=== PATIENT | male | born 1990 | race Caucasian/White ===

== ENCOUNTER 2023-11-10 05:31 | Emergency (ER) | payer OTHER, SELFPAY ==
[2023-11-10] VITALS (27 sets, daily range): BP systolic 140–224; BP diastolic 84–140; PULSE 70–117; TEMP 36.8; O2SAT 84–98; BMI 50.2
--- NOTE | 2023-11-10 06:15 | ED.PSYCH1 ---
HPI - Psych General Chief Complaint: Psychiatric Symptoms Stated Complaint: SUICIDAL Time Seen by Provider: 11/10/23 05:59 Source: Reports patient Mode of arrival: ambulance Limitations: Reports no limitations History of Present Illness HPI Narrative: patient states he has past history of bipolar and heart disease. States he does not take any medication. past depression and he states past suicide attempt. Drinking alcohol last PM. Attempted to strangulate himself this AM with a zip tie. Reportedly he became short of breath and called 911. Brought to ER by [facility]. States he does not want any help. Per [employer] the Police stated his face was purple when they got there and his eyes rolled back in his head and they cut the zip tie Related Data Home Medications ?Medication ?Instructions ?Recorded ?Confirmed No Known Home Medications 11/10/23 11/10/23 Allergies Allergy/AdvReac Type Severity Reaction Status Date / Time No Known Drug Allergies Allergy Verified 11/10/23 05:42 Review of Systems ROS Status of ROS 10 or more systems reviewed and unremarkable except as noted in history and below [facility] Medical History (Updated 11/10/23 @ 06:53 by Kwame Farias MD) Hernia ?K46.9 - Unspecified abdominal hernia without obstruction or gangrene (ICD-10) CHF (congestive heart failure) ?I50.9 - Heart failure, unspecified (ICD-10) Diabetic acidosis, type II ?E11.10 - Type 2 diabetes mellitus with ketoacidosis without coma (ICD-10) HTN (hypertension) ?I10 - Essential (primary) hypertension (ICD-10) Surgical History (Updated 11/10/23 @ 05:45 by Melissa Pichardo) H/O eye surgery ?Z98.890 - Other specified postprocedural states (ICD-10) H/O shoulder surgery ?Z98.890 - Other specified postprocedural states (ICD-10) Exam Constitutional Vital Signs, click to edit/add: Last Vital Signs Temp 98.2 F 11/10/23 05:35 Pulse 113 H 11/10/23 05:35 Resp 20 11/10/23 05:35 BP 224/140 H 11/10/23 05:35 Pulse Ox 92 L 11/10/23 05:35 O2 Del Method Room Air 11/10/23 05:35 Common normals: no apparent distress, oriented x3, healthy appearing, alert and well nourished [facility] Common normals: normocephalic and head/scalp atraumatic Eye Common normals: EOMs intact bilaterally and conjunctivae normal Neck & C-Spine Other: ligature kim anterior neck. no swelling Respiratory Common normals: normal respiratory effort, no retractions, no use of accessory muscles and clear to auscultation bilaterally Cardio Common normals: regular rate, regular rhythm, S1 normal heart sound and S2 normal heart sound GI Common normals: Normal to inspection, nondistended, normoactive bowel sounds present and soft to palpation Extremity Common normals: normal to inspection and full ROM Neuro Common normals: oriented x3, CN's II-XII intact bilaterally, moves all extremities, no focal motor deficits and no sensory deficits noted Psych Activity/motor behavior: appropriate eye contact Course Vital Signs Vital signs: Vital Signs Temperature 98.2 F 11/10/23 05:35 Pulse Rate 113 H 11/10/23 05:35 Respiratory Rate 20 11/10/23 05:35 Blood Pressure 224/140 H 11/10/23 05:35 Pulse Oximetry 92 L 11/10/23 05:35 Oxygen Delivery Method Room Air 11/10/23 05:35 Temperature 98.2 F 11/10/23 05:35 Pulse Rate 113 H 11/10/23 05:35 Respiratory Rate 20 11/10/23 05:35 Blood Pressure 224/140 H 11/10/23 05:35 Pulse Oximetry 92 L 11/10/23 05:35 Oxygen Delivery Method Room Air 11/10/23 05:35 MDM - Psych MDM Narrative Medical decision making narrative: patient arrives to ER from home via [facility]. Attempted to suffocate himself with zip tie. He became short of breath and called 911. Police arrived and found his face purple blue and had to cut the zip tie when his eyes rolled back in his head. He arrives via [facility]. He has been drinking. Admits to suicide attempt and states past suicide attempts. Also states history of bipolar disease and cardiac disease but states he does not take any medication. He has ligature kim anterior neck. C-spine nontender. His BP is elevated. He is refusing diagnostic studies of his neck and treatment of his BP. Exam without any neuro deficits. labs return demonstrating elevated Troponin. Patient informed he will need to be transferred to [facility] via [facility] for evaluation by Cardiology. He is refusing to go by [facility] and states he wants to have someone come and pick him up. He started to elope from the ER but was brought back by global chief experience officer. police arrived and patient is now combative and fighting with police. Haldol and Ativan ordered . Care transferred to Dr Pineda at change of shift Lab Data Labs: Lab Results 11/10/23 Range/Units 05:50 WBC 6.5 (4.0-11.0) 10^3/uL RBC 5.62 (4.70-6.10) 10^6/uL Hgb 17.2 (14.0-18.0) g/dL Hct 49.2 (42.0-54.0) % MCV 87.5 (80.0-94.0) fL MCH 30.6 (25.9-34.0) pg MCHC 35.0 (29.9-35.2) g/dL RDW 14.1 (11.0-15.0) % Plt Count 155 (150-450) 10^3/uL MPV 10.3 (9.5-13.5) fL Neut % (Auto) 58.9 (43.0-75.0) % Lymph % (Auto) 28.8 (20.5-60.0) % [place] % (Auto) 5.7 (1.7-12.0) % Eos % (Auto) 5.7 (0.9-7.0) % Baso % (Auto) 0.6 (0.2-2.0) % Neut # (Auto) 3.8 (1.4-6.5) 10^3/uL Lymph # (Auto) 1.9 (1.2-3.8) 10^3/uL [place] # (Auto) 0.4 (0.3-0.8) 10^3/uL Eos # (Auto) 0.4 (0.0-0.7) 10^3/uL Baso # (Auto) 0.0 (0.0-0.1) 10^3/uL Abs Immat Gran (auto) 0.02 (0.00-0.03) 10^3/uL Imm/Tot Granulo (auto) 0.3 (0.0-0.5) % Sodium 136 (136-145) mmol/L Potassium 3.5 (3.5-5.1) mmol/L Chloride 100 (98-107) mmol/L Carbon Dioxide 26.8 (21.0-32.0) mmol/L Anion Gap 12.7 BUN 6.0 L (7.0-18.0) mg/dL Creatinine 0.86 (0.70-1.30) mg/dL Est GFR ( Amer) >60 (>=60) Est GFR (Non-Af Amer) >60 (>=60) BUN/Creatinine Ratio 7.0 Glucose 295 H (74-106) mg/dL Calcium 8.7 (8.5-10.1) mg/dL Total Bilirubin 0.4 (0.2-1.0) mg/dL AST 23 (15-37) U/L ALT 45 (16-63) U/L Alkaline Phosphatase 89 (46-116) U/L Troponin I High Sens 399.6 H* (4.0-76.1) pg/mL Total Protein 7.8 (6.4-8.2) g/dL Albumin 3.3 L (3.4-5.0) g/dL Globulin 4.5 g/dL Albumin/Globulin Ratio 0.7 Salicylates <2.8 (<=19.9) mg/dL Acetaminophen <2.0 L (10.0-30.0) ug/mL Ethanol Quant 213 mg/dL Discharge Plan Discharge Stand Alone Forms: Portal Instructions Chief Complaint: Psychiatric Symptoms Clinical Impression: Attempted suicide, Elevated troponin Patient Disposition: Still a Patient Prescriptions / Home Meds: No Action No Known Home Medications Print Language: Irish Referrals: Physician,Non-Staff, MD [Primary Care Provider] - 1 week
[2023-11-10 06:20] LABS: Basophils Percent Auto 0.6 % (0.2-2.0); Eosinophils Absolute Auto 0.4 10^3/uL (0.0-0.7); Eosinophils Percent Auto 5.7 % (0.9-7.0); Hematocrit 49.2 % (42.0-54.0); Hemoglobin 17.2 g/dL (14.0-18.0); Immature Granulocytes Abs Auto 0.02 10^3/uL (0.00-0.03); Immature Granulocytes Pct Auto 0.3 % (0.0-0.5); Lymphocytes Absolute Auto 1.9 10^3/uL (1.2-3.8); Lymphocytes Percent Auto 28.8 % (20.5-60.0); Mean Corpuscular Hemoglobin 30.6 pg (25.9-34.0); Mean Corpuscular Volume 87.5 fL (80.0-94.0); Mean Platelet Volume 10.3 fL (9.5-13.5); Monocytes Absolute Auto 0.4 10^3/uL (0.3-0.8); Monocytes Percent Auto 5.7 % (1.7-12.0); Neutrophils Absolute Auto 3.8 10^3/uL (1.4-6.5); Neutrophils Percent Auto 58.9 % (43.0-75.0); Platelet Count 155 10^3/uL (150-450); Red Blood Count 5.62 10^6/uL (4.70-6.10); Red Cell Distribution Width 14.1 % (11.0-15.0); White Blood Count 6.5 10^3/uL (4.0-11.0)
[2023-11-10 06:30] LABS: Ethanol 213 mg/dL; Salicylate <2.8 mg/dL (<=19.9)
[2023-11-10 06:31] LABS: Acetaminophen <2.0 ug/mL (10.0-30.0)
[2023-11-10 06:33] LABS: Alanine Aminotransferase 45 U/L (16-63); Albumin Globulin Ratio 0.7; Albumin Level 3.3 g/dL (3.4-5.0); Alkaline Phosphatase 89 U/L (46-116); Anion Gap 12.7; Aspartate Amino Transferase 23 U/L (15-37); Bilirubin Total 0.4 mg/dL (0.2-1.0); Calcium 8.7 mg/dL (8.5-10.1); Carbon Dioxide 26.8 mmol/L (21.0-32.0); Chloride 100 mmol/L (98-107); Estimated GFR (African America >60 (>=60); Estimated GFR (Non-African Ame >60 (>=60); Globulin 4.5 g/dL; Glucose 295 mg/dL (74-106); Potassium 3.5 mmol/L (3.5-5.1); Sodium 136 mmol/L (136-145); Total Protein 7.8 g/dL (6.4-8.2)
[2023-11-10 06:38] LABS: Troponin I High Sensitivity 399.6 pg/mL (4.0-76.1)
[2023-11-10] MEDS: LORAZEPAM 2 MG/ML VIAL IV (07:03)
[2023-11-10] MEDS: HALOPERIDOL LACTATE 5 MG/ML VIAL IM (07:04)
[2023-11-10] MEDS: ASPIRIN 81 MG TAB.CHEW 324 MG PO (07:20)
--- NOTE | 2023-11-10 07:29 | XR_ITS ---
The [address] [address] Patient Name: SILVA CARRANZA MRN: [id number] date: 1990 Sex: M Assigned Patient Location: ER Current Patient Location: ER Accession/Order Number: [id number] Exam Date: 11/10/2023 07:38 Report Date: 11/10/2023 07:49 At the request of: KARUNA JESUS Procedure: XR chest 1V EXAM: XR chest 1V REASON FOR EXAM: SOB. TECHNIQUE: Single portable view the chest. COMPARISON: None FINDINGS: Perihilar opacities and peribronchial thickening favors represent reactive and/or small airway disease. Pulmonary edema also consideration. Heart size is normal. No pleural effusion or pneumothorax. Osseous structures are without acute abnormality XR/XR chest 1V IMPRESSION: Reactive and/or small airway disease without focal pneumonia. Electronically authenticated by: CARMEN STANTON Date: 11/10/2023 07:49
[2023-11-10] MEDS: CLONIDINE HCL 0.1 MG TABLET 0.100000000000000006 MG PO ×2 (07:30→09:09)
[2023-11-10 07:48] LABS: Troponin I High Sensitivity 385.8 pg/mL (4.0-76.1)
--- NOTE | 2023-11-10 08:01 | ED_ITS ---
HPI - Psych General Chief Complaint: Psychiatric Symptoms Stated Complaint: SUICIDAL Time Seen by Provider: 11/10/23 05:59 Source: Reports patient Mode of arrival: ambulance Limitations: Reports no limitations History of Present Illness HPI Narrative: 33-year-old presented to the emergency department and was initially seen by Dr. Farias. He was signed out to me at change of shift after discussing the case with Dr. Farias thoroughly. Please see his full history and physical exam. Related Data Home Medications ?Medication ?Instructions ?Recorded ?Confirmed carvedilol 12.5 mg tablet 12.5 mg PO Q12H 11/10/23 11/10/23 furosemide 40 mg tablet 40 mg PO DAILY 11/10/23 11/10/23 valsartan 80 mg tablet 80 mg PO DAILY 11/10/23 11/10/23 Allergies Allergy/AdvReac Type Severity Reaction Status Date / Time No Known Drug Allergies Allergy Verified 11/10/23 05:42 [facility] Medical History (Updated 11/10/23 @ 06:53 by Kwame Farias MD) Hernia ?K46.9 - Unspecified abdominal hernia without obstruction or gangrene (ICD- 10) CHF (congestive heart failure) ?I50.9 - Heart failure, unspecified (ICD-10) Diabetic acidosis, type II ?E11.10 - Type 2 diabetes mellitus with ketoacidosis without coma (ICD-10) HTN (hypertension) ?I10 - Essential (primary) hypertension (ICD-10) Surgical History (Updated 11/10/23 @ 05:45 by Melissa Pichardo) H/O eye surgery ?Z98.890 - Other specified postprocedural states (ICD-10) H/O shoulder surgery ?Z98.890 - Other specified postprocedural states (ICD-10) Exam Constitutional Vital Signs, click to edit/add: Last Vital Signs Temp 98.2 F 11/10/23 05:35 Pulse 70 11/10/23 07:58 Resp 22 H 11/10/23 07:46 BP 140/84 11/10/23 07:46 Pulse Ox 96 11/10/23 07:46 O2 Del Method Room Air 11/10/23 07:34 O2 Flow Rate 4 11/10/23 07:34 Course Vital Signs Vital signs: Vital Signs Pulse Rate 112 H 11/10/23 05:34 Respiratory Rate 24 H 11/10/23 05:34 Temperature 98.2 F 11/10/23 05:35 Pulse Rate 70 11/10/23 07:58 Respiratory Rate 22 H 11/10/23 07:46 Blood Pressure 140/84 11/10/23 07:46 Pulse Oximetry 96 11/10/23 07:46 Oxygen Delivery Method Room Air 11/10/23 07:34 Oxygen Delivery Flow Rate 4 11/10/23 07:34 MDM - Psych MDM Narrative Medical decision making narrative: The patient's troponin initially was elevated at 399, repeat 385. He does not seem to have any chest pain. Upon presentation he was quite uncooperative and initially refused all treatment. EKG on my interpretation shows sinus rhythm without acute change. Initially the patient was hypertensive but has responded well to oral clonidine. He was quite uncooperative initially and had to be brought back by the local police because he tried leaving. [place] slip has been filled out by Dr. Farias and he was also given IV Haldol and Ativan. The rest of his workup is negative. He is hemodynamically stable and appropriate for transfer under pink slip. I have spoken to Dr. Low who accepts the patient at [facility]. Differential Diagnosis Differential diagnosis: Likely suicidal ideation, bipolar disorder, depression and acute anxiety Lab Data Attestation: I reviewed the patient's lab results. Labs: Lab Results 11/10/23 11/10/23 Range/Units 05:50 07:24 WBC 6.5 (4.0-11.0) 10^3/uL RBC 5.62 (4.70-6.10) 10^6/uL Hgb 17.2 (14.0-18.0) g/dL Hct 49.2 (42.0-54.0) % MCV 87.5 (80.0-94.0) fL MCH 30.6 (25.9-34.0) pg MCHC 35.0 (29.9-35.2) g/dL RDW 14.1 (11.0-15.0) % Plt Count 155 (150-450) 10^3/uL MPV 10.3 (9.5-13.5) fL Neut % (Auto) 58.9 (43.0-75.0) % Lymph % (Auto) 28.8 (20.5-60.0) % [place] % (Auto) 5.7 (1.7-12.0) % Eos % (Auto) 5.7 (0.9-7.0) % Baso % (Auto) 0.6 (0.2-2.0) % Neut # (Auto) 3.8 (1.4-6.5) 10^3/uL Lymph # (Auto) 1.9 (1.2-3.8) 10^3/uL [place] # (Auto) 0.4 (0.3-0.8) 10^3/uL Eos # (Auto) 0.4 (0.0-0.7) 10^3/uL Baso # (Auto) 0.0 (0.0-0.1) 10^3/uL Abs Immat Gran (auto) 0.02 (0.00-0.03) 10^3/uL Imm/Tot Granulo (auto) 0.3 (0.0-0.5) % Sodium 136 (136-145) mmol/L Potassium 3.5 (3.5-5.1) mmol/L Chloride 100 (98-107) mmol/L Carbon Dioxide 26.8 (21.0-32.0) mmol/L Anion Gap 12.7 BUN 6.0 L (7.0-18.0) mg/dL Creatinine 0.86 (0.70-1.30) mg/dL Est GFR ( Amer) >60 (>=60) Est GFR (Non-Af Amer) >60 (>=60) BUN/Creatinine Ratio 7.0 Glucose 295 H (74-106) mg/dL Calcium 8.7 (8.5-10.1) mg/dL Total Bilirubin 0.4 (0.2-1.0) mg/dL AST 23 (15-37) U/L ALT 45 (16-63) U/L Alkaline Phosphatase 89 (46-116) U/L Troponin I High Sens 399.6 H* 385.8 H* (4.0-76.1) pg/mL Total Protein 7.8 (6.4-8.2) g/dL Albumin 3.3 L (3.4-5.0) g/dL Globulin 4.5 g/dL Albumin/Globulin Ratio 0.7 Salicylates <2.8 (<=19.9) mg/dL Acetaminophen <2.0 L (10.0-30.0) ug/mL Ethanol Quant 213 mg/dL Imaging Data Chest x-ray: Radiologist's impression: ITS Impressions Chest X-Ray 11/10/23 07:29 IMPRESSION: Reactive and/or small airway disease without focal pneumonia. Electronically authenticated by: CARMEN STANTON Date: 11/10/2023 07:49 ECG Data Attestation: I personally reviewed and interpreted this ECG as follows: (EKG on my interpretation shows sinus tachycardia with a rate of 109. No ST elevation.) Discharge Plan Discharge Chief Complaint: Psychiatric Symptoms Clinical Impression: Attempted suicide, Elevated troponin Patient Disposition: [facility] Time of Disposition Decision: 07:30 Discharge Location: [facility] Condition: Fair Mode of Transportation: EMS
== END 2023-11-10 09:14 | disposition short-term general hospital (02) ==
PROVIDERS: Internal Medicine; Emergency Provider Emergency Medicine
DX: T14.91XA Suicide attempt, initial encounter (principal); X83.8XXA Intentional self-harm by other specified means, initial encounter; R79.89 Other specified abnormal findings of blood chemistry; F31.9 Bipolar disorder, unspecified; I51.9 Heart disease, unspecified
CPT/HCPCS: 36415; 71045; 80053; 80179; 80307; 80320; 80329; 84484; 85025; 96372; 96374; 99285; J1630; J2060